=== PATIENT | female | born 1955 | race Caucasian/White ===

== ENCOUNTER 2018-01-17 22:26 | Emergency (ER) | payer MEDICAID ==
--- NOTE | 2018-01-18 01:04 | ER Document Report ---
ED General - General Chief Complaint: Skin Problem Stated Complaint: Left palm rash Time Seen by Provider: 01/18/18 00:17 Notes: Patient is a 62-year-old female who presents with 3 months of a rash to her left hand. She describes there is a constant, burning, throbbing pain. She states that she saw her primary doctor yesterday, was prescribed triamcinolone ointment, applied it once because of severe burning after application she has not used it again since. She denies any history of similar rashes in the past. She denies any fever or constitutional symptoms. TRAVEL OUTSIDE OF THE [place] IN LAST 30 DAYS: No - HPI Onset: Other - 3 months ago Onset/Duration: Constant, Persistent Quality of pain: Achy, Burning Severity: Mild Pain Level: 2 Associated symptoms: None Exacerbated by: Denies Relieved by: Denies Similar symptoms previously: No Recently seen / treated by doctor: Yes - Related Data Allergies/Adverse Reactions: Penicillins Allergy (Verified 01/17/18 22:33) pregabalin [From Lyrica] Allergy (Verified 01/17/18 22:33) Sulfa (Sulfonamide Antibiotics) Allergy (Verified 01/17/18 22:33) Past Medical History - General Information source: Patient - Social History Smoking Status: Never Smoker Chew tobacco use (# tins/day): No Frequency of alcohol use: None Drug Abuse: None Lives with: Spouse/Significant other Family History: Reviewed & Not Pertinent Patient has suicidal ideation: No Patient has homicidal ideation: No Renal/ Medical History: Denies: Hx Peritoneal Dialysis Review of Systems - Review of Systems Notes: Constitutional: Negative for fever. HENT: Negative for sore throat. Eyes: Negative for visual changes. Cardiovascular: Negative for chest pain. Respiratory: Negative for shortness of breath. Gastrointestinal: Negative for abdominal pain, vomiting or diarrhea. Genitourinary: Negative for dysuria. Musculoskeletal: Negative for back pain. Skin: Positive for rash. Neurological: Negative for headaches, weakness or numbness. 10 point ROS negative except as marked above and in HPI. Physical Exam - Vital signs Vitals: Temp Pulse Resp BP Pulse Ox 98.6 F 94 20 151/68 H 97 01/17/18 22:48 01/17/18 22:48 01/17/18 22:48 01/17/18 22:48 01/17/18 22:48 Interpretation: Hypertensive Notes: PHYSICAL EXAMINATION: GENERAL: Well-appearing, well-nourished and in no acute distress. HEAD: Atraumatic, normocephalic. EYES: sclera anicteric, conjunctiva are normal. ENT: Moist mucous membranes. NECK: Normal range of motion LUNGS: Normal work of breathing HEART: 2+ radial pulses bilaterally EXTREMITIES: no pitting or edema. No cyanosis. NEUROLOGICAL: No focal neurological deficits. Moves all extremities spontaneously and on command. PSYCH: Normal mood, normal affect. SKIN: Warm, Dry, normal turgor, there is a 1 x 2 cm area of erythema and peeling skin to the hyperthenar eminence of the left hand. Course - Re-evaluation Re-evalutation: 01/18/18 01:03 Patient presents for 3 months of left palm erythema with associated peeling of the affected area. Appears to be likely severely dry skin with associated inflammation. She was started on topical steroid by her primary provider yesterday, applied it once and states that it garner when applied so she has not use it anymore. Does not appear to be a desquamating rash, no clinical history to suggest a more worrisome presentation such as Villarreal-Ish syndrome or TEN. Appears to be a very local contact dermatitis with associated inflammation and peeling of the skin. I have encouraged her to please use the triamcinolone as prescribed by her primary care doctor and follow-up as directed. At this time will discharge with return precautions and follow-up recommendations. Verbal discharge instructions given a the bedside and opportunity for questions given. Medication warnings reviewed. Patient is in agreement with this plan and has verbalized understanding of return precautions and the need for primary care follow-up in the next 24-72 hours. - Vital Signs Vital signs: Temp Pulse Resp BP Pulse Ox 98.4 F 90 16 142/70 H 97 01/18/18 01:15 01/18/18 01:15 01/18/18 01:15 01/18/18 01:15 01/18/18 01:15 Discharge - Discharge Clinical Impression: Rash of hands, Peeling skin Condition: Good Disposition: HOME, SELF-CARE Additional Instructions: Please apply a steroid cream provided by your primary care doctor 3 times daily to the affected area for the next 1 week. Please then follow-up with your primary care physician. Return if you develop fever, worsening the rash, or any other symptoms that are worrisome to you.
[2018-01-18 01:26] VITALS: BP 142/70
== END 2018-01-18 01:15 | disposition home or self-care (01) ==
LOC: ER 22:26
DX: R21 Rash and other nonspecific skin eruption (principal); L98.8 Other specified disorders of the skin and subcutaneous tissue
CPT/HCPCS: 99283